=== PATIENT | female | born 1965 | race Caucasian/White ===

== ENCOUNTER 2018-12-21 07:29 | Inpatient (IN) | payer OTHER ==
[~2018-12-21] VITALS: Ht 165.1 cm; Wt 94.3 kg
[~2018-12-21 07:29] MED LIST: ACUPRIL PO; CLONAZEPAM2 M1 PO
[2018-12-26] MEDS ORDERED: INTESTINEX680 M1 PO (11:58)
[2018-12-26] MEDS ORDERED: OMEPRAZOLE20 MG PO (11:58)
[2018-12-26] MEDS ORDERED: PERCOCET 5-3251 EACH PO (11:58)
[2018-12-26] MEDS ORDERED: TYLENOL EXTRA500 MG PO (12:00)
[2018-12-26] MEDS ORDERED: ULTRACET PO (12:04)
== END 2018-12-26 14:06 | disposition home or self-care (01) | DRG 330 ==
LOC: O/R 12-22 04:25 → SURG 12-22 04:25 → SURH 12-22 07:00 → SURG 12-22 16:26
PROVIDERS: ADMIT Surgery
PROC: 0DJD8ZZ Inspection of Lower Intestinal Tract, Via Natural or Artificial Opening Endoscopic (ICD-10-PCS; 2018-12-22)
PROC: 0DTN4ZZ Resection of Sigmoid Colon, Percutaneous Endoscopic Approach (ICD-10-PCS; principal; 2018-12-22 07:00)
PROC: 07TC4ZZ Resection of Pelvis Lymphatic, Percutaneous Endoscopic Approach (ICD-10-PCS; 2018-12-22 07:00)
DX: C18.7 Malignant neoplasm of sigmoid colon (principal); D68.8 Other specified coagulation defects; I11.9 Hypertensive heart disease without heart failure

== ENCOUNTER 2020-03-07 09:18 | Outpatient (CLI) | payer OTHER ==
[~2020-03-07 09:18] MED LIST changes: +INTESTINEX680 M1 PO; +OMEPRAZOLE20 MG PO; +PERCOCET 5-3251 EACH PO; +TYLENOL EXTRA500 MG PO; +ULTRACET PO
== END 2020-03-07 15:00 | disposition home or self-care (01) ==
LOC: LAB 09:18
DX: C18.7 Malignant neoplasm of sigmoid colon (principal); K64.8 Other hemorrhoids

== ENCOUNTER 2020-03-15 05:35 | Day surgery (SDC) | payer OTHER | END 2020-03-15 11:30 | disposition home or self-care (01) | LOC: AMB-ENDOS 05:35 | DX: K62.89 Other specified diseases of anus and rectum (principal) ==

== ENCOUNTER → 2021-01-02 | Emergency (ER) | payer OTHER ==
[~2021-01-02] VITALS: Ht 165.1 cm; Wt 93.0 kg
[~2021-01-02] MED LIST changes: +LUNESTA2 MG
== END | disposition home or self-care (01) ==
LOC: ER 06:58
DX: K62.5 Hemorrhage of anus and rectum (principal)

== ENCOUNTER 2021-10-10 09:55 | Day surgery (SDC) | payer OTHER | END 2021-10-10 14:50 | disposition home or self-care (01) | LOC: AMB-ENDOS 09:55 | PROVIDERS: ATTEND Surgery | DX: D12.3 Benign neoplasm of transverse colon (principal); K64.4 Residual hemorrhoidal skin tags; Z20.822 Contact with and (suspected) exposure to COVID-19 ==

== ENCOUNTER 2022-08-27 05:50 | Day surgery (SDC) | payer OTHER ==
[~2022-08-27] VITALS: Ht 165.1 cm; Wt 95.3 kg
[2022-08-27] MEDS ORDERED: KETO10TA2 PO (13:28)
[2022-08-27] MEDS ORDERED: DERMOPLAST PAIN78 GM TOP (13:28)
[2022-08-27] MEDS ORDERED: NEURONTIN300 MG PO (13:28)
== END 2022-08-27 15:35 | disposition home or self-care (01) ==
LOC: CIR.AMB 05:50
PROVIDERS: ATTEND Surgery
DX: K64.2 Third degree hemorrhoids (principal); I11.9 Hypertensive heart disease without heart failure; C18.7 Malignant neoplasm of sigmoid colon; D68.9 Coagulation defect, unspecified; G43.909 Migraine, unspecified, not intractable, without status migrainosus; F41.9 Anxiety disorder, unspecified; F32.9 Major depressive disorder, single episode, unspecified; G47.33 Obstructive sleep apnea (adult) (pediatric); Z85.3 Personal history of malignant neoplasm of breast; Z20.822 Contact with and (suspected) exposure to COVID-19